=== PATIENT | female | born 2000 | race Two or more races ===

== ENCOUNTER 2022-07-16 18:39 | Emergency (ER) | payer OTHER ==
[~2022-07-16] VITALS: Ht 149.9 cm; Wt 76.2 kg
[2022-07-16] MEDS ORDERED: PRENATABS RX T1 EACH (19:00)
== END 2022-07-16 23:23 | disposition home or self-care (01) ==
LOC: ER 18:39
DX: O98.513 Other viral diseases complicating pregnancy, third trimester (principal); Z3A.30 30 weeks gestation of pregnancy; B34.9 Viral infection, unspecified; Z20.822 Contact with and (suspected) exposure to COVID-19